=== PATIENT | female | born 1980 | race Two or more races ===

== ENCOUNTER 2020-12-18 07:49 | Outpatient (CLI) | payer OTHER, SELFPAY ==
--- NOTE | 2020-12-18 08:03 | MM_ITS ---
WS: [id number] Bilateral screening digital mammogram, 12/18/2020 Clinical Data: SCREENING Comparison: None. Findings: The breast parenchymal pattern shows fibroglandular tissue No spiculated masses or clustered calcific ations are seen. There are no secondary signs of carcinoma. MM/[id number] Impression: 1. Negative bilateral mammogram with no prior exams for review. 2. Recommend annual screening mammograms. BIRADS: 1-Negative FOLLOW UP: 1 Year Follow-up The CAD checker loader was used.
== END 2020-12-18 07:50 | disposition home or self-care (01) ==
LOC: RADSHAW 07:57
PROVIDERS: Family Provider Family Medicine; Visit Provider Nurse Practitioner Family
DX: Z12.31 Encounter for screening mammogram for malignant neoplasm of breast (principal)
CPT/HCPCS: 77067

== ENCOUNTER 2021-08-16 20:47 | Emergency (ER) | payer BC, MEDICAID, SELFPAY ==
[2021-08-16 21:39] VITALS: BP 140/84; PULSE 73; RESP 18; TEMP 36.8; O2SAT 99; BMI 29.6
[2021-08-16 22:22] LABS: Add Urine Microscopic? YES; Bilirubin Urine Neg (Negative); Blood Urine 3+ (Negative); Glucose Urine UA Norm (Normal); Ketones Urine Negative (Negative); Leukocyte Esterase Urine Negative (Negative); Nitrate Urine Negative (Negative); Protein Urine Neg (Negative); Sulfosalicylic Acid Urine Negative (Negative); Urine Appearance Clear (CLEAR); Urine Color Yellow (Yellow); Urobilinogen Urine Norm (Negative); pH Urine 8 (5-7)
[2021-08-16 22:23] LABS: Add Urine Culture? No; Bacteria Urine TRACE /hpf; Squamous Epithelial Cell Urine 0-4 /hpf (0-5); WBC Urine 0-4 /hpf (0-5)
[2021-08-16 22:37] LABS: Basophils % 0.3 %; Eosinophils # 0.1 10^3/uL (0.0-0.8); Eosinophils % 0.6 %; Hematocrit 42.2 % (37.0-47.0); Hemoglobin 14.6 g/dL (11.5-15.3); Lymphocytes % 16.4 %; Mean Corpuscular HGB Conc 34.6 g/dL (30.0-36.0); Mean Corpuscular Hemoglobin 31.4 pg (28.0-34.0); Mean Corpuscular Volume 90.8 fl (81-99); Mean Platelet Volume 11.5 fL (7.4-10.4); Monocytes # 0.8 10^3/uL (0.2-0.9); Monocytes % 6.7 %; Neutrophils # 9.35 10^3/uL (1.8-7.7); Neutrophils % 75.6 %; Nucleated Red Blood Cells % 0 %; Platelet Count 231 10^3/cmm (130-400); Red Blood Count 4.65 10^6/uL (4.1-5.3); Red Cell Distribution Width 11.9 % (12.1-15.1); White Blood Count 12.4 10^3/uL (4.0-10.0)
--- NOTE | 2021-08-17 01:16 | USR_ITS ---
PROCEDURE INFORMATION: Exam: US First Trimester, Transabdominal Exam date and time: 08/17/2021 1:16 AM Age: 40 years old Clinical indication: Lmp or gestational age (in weeks): 7w0d per lmp; Antepartum complications; Bleeding; ; Prior surgery; Surgery date: 6+ months; Surgery type: C-sec; Additional info: Threatened miscarriage TECHNIQUE: Imaging protocol: Real-time transabdominal obstetrical ultrasound of the maternal pelvis and a first trimester , less than 14 weeks 0 days, with image documentation. COMPARISON: No relevant prior studies available. FINDINGS: Gestation: Yolk sac measures 3 mm. Embryonic/ heart rate: heart rate 150 bpm. Extra-embryonic membranes/Placenta: Small suspected subchorionic hemorrhage. Amniotic fluid: Amniotic fluid/chorionic fluid is normal for gestational age. BIOMETRY: Gestational age (AUA): Gestational age 7 weeks and 6 days. Estimated due date (AUA): Estimated due date 03/30/2022. [place]-Rump length: Intrauterine gestation with crown-rump length measuring 1.5 cm. MATERNAL: Uterus: Unremarkable. Cervix: 3.2 cm closed cervix. Right ovary/adnexa: Right ovary could not be visualized as result of adjacent bowel. Left ovary/adnexa: Left ovary contains a small probable cyst or corpus luteum, and has normal vascular flow. Intraperitoneal space: No free fluid. US/US OB <= 14 weeks fetus [id number] IMPRESSION: 1. Small suspected subchorionic hemorrhage. 2. Living intrauterine gestation measuring 7 weeks and 6 days with due date 03/30/2022.
--- NOTE | 2021-08-17 01:32 | W.ED.GENADLT ---
HPI - General Adult General: Chief complaint: Vaginal Bleeding Stated complaint: 7 weeks pregnat an bleeding Time Seen by Provider: 08/17/21 00:05 Source: patient Mode of arrival: ambulatory Limitations: no limitations History of Present Illness: HPI narrative: 40-year-old female states she currently is 6 weeks states she went to the bathroom earlier and noticed blood in her underwear she had some slight bleeding since then as well. She denies any abdominal pain denies any fevers denies any worsening improving factors. She denies any vaginal discharge. Associated symptoms: Deny chest pain, dyspnea, headache(s), nausea, rash or vomiting Review of Systems Const: Denies: fever(s), chills, body aches or change in appetite Eyes: Denies: blurry vision or eye discomfort ENMT: Denies: throat pain or dental pain Card: Denies: chest pain Resp: Denies: dyspnea GI: Denies: abdominal pain, nausea, vomiting or diarrhea : Reports: vaginal bleeding Musc: Denies: neck pain or back pain Skin/Breast: Denies: rash Neuro: Denies: headache(s) Psych: Denies: depression Yvan/Lymph: Denies: easy bruising All/Imm: Denies: urticaria [facility] ED Female Reproductive History: Date of last menstrual period: 06/25/21 Physical Exam Const: COMMON NORMALS: no acute distress, patient oriented x3 and healthy appearing HENMT: COMMON NORMALS: normocephalic and atraumatic HEAD & SCALP: normocephalic and atraumatic Eye: COMMON NORMALS: Equal, round and reactive pupils present and EOMs intact bilaterally PUPIL: Yes Equal, round and reactive pupils present Neck/C-Spine: COMMON NORMALS: full ROM and supple Chest: COMMONS NORMALS: normal inspection of the chest and normal palpation of entire chest wall Resp: COMMON NORMALS: normal respiratory effort, No retractions, No use of accessory muscles and clear to auscultation bilaterally AUSCULTATION: clear to auscultation bilaterally Cardio: COMMON NORMALS: regular rate, regular rhythm and No murmurs present (Cardio) RATE: regular rate RHYTHM: regular rhythm GI: COMMON NORMALS: Normal to inspection, nondistended, normoactive bowel sounds present, Soft to palpation, non-tender and no masses PALPATION: Yes Soft to palpation Extremity: COMMON NORMALS: normal to inspection and full ROM Neuro: COMMON NORMALS: patient oriented x3, moves all extremities and no focal motor deficits Psych: COMMON NORMALS: mental status grossly normal, Normal thought process present and cooperative THOUGHT PROCESS: Normal thought process present Skin: COMMON NORMALS: no rashes or lesions noted and no wounds GENERAL SKIN EXAM: no rashes or lesions noted Course Vital Signs: Vital signs: Vital Signs Temperature 98.3 F 08/16/21 21:39 Pulse Rate 73 08/16/21 21:39 Respiratory Rate 18 08/16/21 21:39 Blood Pressure 140/84 08/16/21 21:39 Pulse Oximetry 99 08/16/21 21:39 MDM - General Adult MDM Narrative: Medical decision making narrative: Patient presents here with a threatened miscarriage ultrasound here showed an IUP with heart rate she is well-appearing here with no abdominal pain. She is to follow-up with her OB as scheduled this week and return if worsening she understands agrees to plan. Lab Data: Labs: Lab Results 08/16/21 08/16/21 08/16/21 21:50 22:30 22:30 WBC 12.4 10^3/uL H 10 ^3/uL (4.0-10.0) RBC 4.65 10^6/uL 10^6 /uL (4.1-5.3) Hgb 14.6 g/dL g/dL (11.5-15.3) Hct 42.2 % % (37.0-47.0) MCV 90.8 fl fl (81-99) MCH 31.4 pg pg (28.0-34.0) MCHC 34.6 g/dL g/dL (30.0-36.0) RDW 11.9 % L % (12.1-15.1) Plt Count 231 10^3/cmm 10^3 /cmm (130-400) MPV 11.5 fL H fL (7.4-10.4) Neut % (Auto) 75.6 % % Lymph % (Auto) 16.4 % % [place] % (Auto) 6.7 % % Eos % (Auto) 0.6 % % Baso % (Auto) 0.3 % % Neut # (Auto) 9.35 10^3/uL H 10 ^3/uL (1.8-7.7) Lymph # (Auto) 2.0 10^3/uL 10^3/ uL (0.8-4.8) [place] # (Auto) 0.8 10^3/uL 10^3/ uL (0.2-0.9) Eos # (Auto) 0.1 10^3/uL 10^3/ uL (0.0-0.8) Baso # (Auto) 0.0 10^3/uL 10^3/ uL (0.0-0.1) Nucleated RBC % (a uto) 0 % % Nucleated RBCs # 0.0 /100WBC /100W BC Ser , [place] 17658.00 mIU/mL m IU/mL Urine Color Yellow (Yellow) Urine Appearance Clear (CLEAR) Urine pH 8 H (5-7) Ur Specific Gravit y 1.020 (1.005-1.030) Urine Protein Neg (Negative) Urine Glucose (UA) Norm (Normal) Urine Ketones Negative (Negative) Urine Blood 3+ H (Negative) Urine Nitrate Negative (Negative) Urine Bilirubin Neg (Negative) Prot Sulfosalicyli c Acd Negative (Negative) Urine Urobilinogen Norm mg/dL mg/dL (Negative) Ur Leukocyte Marga ase Negative (Negative) Urine RBC 5-10 /hpf H /hpf (0-2) Urine WBC 0-4 /hpf H /hpf (0-5) Ur Squamous Epith Cells 0-4 /hpf H /hpf (0-5) Amorphous Sediment Not Reportable Urine Bacteria Trace /hpf /hpf (NONE) Blood Type Rho(D) Type Antibody Screen 08/17/21 01:24 WBC RBC Hgb Hct MCV MCH MCHC RDW Plt Count MPV Neut % (Auto) Lymph % (Auto) [place] % (Auto) Eos % (Auto) Baso % (Auto) Neut # (Auto) Lymph # (Auto) [place] # (Auto) Eos # (Auto) Baso # (Auto) Nucleated RBC % (a uto) Nucleated RBCs # Ser , [place] i-Qnt Urine Color Urine Appearance Urine pH Ur Specific Gravit y Urine Protein Urine Glucose (UA) Urine Ketones Urine Blood Urine Nitrate Urine Bilirubin Prot Sulfosalicyli c Acd Urine Urobilinogen Ur Leukocyte Marga ase Urine RBC Urine WBC Ur Squamous Epith Cells Amorphous Sediment Urine Bacteria Blood Type O Positive Rho(D) Type Positive Antibody Screen Negative Discharge Plan Discharge Patient Disposition: Home Clinical Impression: Threatened Condition: Stable Discharge Orders: Discharge ED (Routine); Ordered 08/17/21 Ordered By: Lashaun Garcia Discharge Diet: Advance as tolerated Discharge Activity: Resume usual activity Patient Instructions: Threatened Miscarriage (ED) Coding Level of Care Code ED Machinery Mover for Nayan Fwd Exam Comprehensive
[2021-08-17 02:28] VITALS: BP 127/97; PULSE 80; RESP 17; O2SAT 98
== END 2021-08-17 02:32 | disposition home or self-care (01) ==
PROVIDERS: Emergency Provider Emergency Medicine
DX: O20.0 Threatened abortion (principal); Z3A.01 Less than 8 weeks gestation of pregnancy
CPT/HCPCS: 36415; 76801; 81001; 84702; 85025; 86850; 86900; 99283

== ENCOUNTER → 2021-08-20 11:20 | Outpatient (BNVA) | payer BC, MEDICAID, SELFPAY | PROVIDERS: Visit Provider Nurse Practitioner Women's Health | DX: O09.521 Supervision of elderly multigravida, first trimester; O41.8X10 Other specified disorders of amniotic fluid and membranes, first trimester, not applicable or unspecified; O46.8X1 Other antepartum hemorrhage, first trimester; N92.6 Irregular menstruation, unspecified; Z3A.00 Weeks of gestation of pregnancy not specified | CPT/HCPCS: 81000; 81025 ==

== ENCOUNTER 2021-08-31 19:50 | Emergency (ER) | payer BC, MEDICAID, SELFPAY ==
[2021-08-31 21:02] VITALS: BP 141/96; PULSE 65; RESP 20; TEMP 36.9; O2SAT 100; BMI 29.1
[2021-08-31 23:40] LABS: Basophils % 0.4 %; Eosinophils % 0.3 %; Hematocrit 42.7 % (37.0-47.0); Hemoglobin 14.9 g/dL (11.5-15.3); Lymphocytes # 2.5 10^3/uL (0.8-4.8); Lymphocytes % 23.7 %; Mean Corpuscular HGB Conc 34.9 g/dL (30.0-36.0); Mean Corpuscular Hemoglobin 31.6 pg (28.0-34.0); Mean Corpuscular Volume 90.7 fl (81-99); Mean Platelet Volume 11.7 fL (7.4-10.4); Monocytes # 0.5 10^3/uL (0.2-0.9); Monocytes % 4.6 %; Neutrophils % 70.8 %; Nucleated Red Blood Cells % 0 %; Platelet Count 233 10^3/cmm (130-400); Red Blood Count 4.71 10^6/uL (4.1-5.3); Red Cell Distribution Width 11.9 % (12.1-15.1); White Blood Count 10.7 10^3/uL (4.0-10.0)
--- NOTE | 2021-09-01 01:16 | ED_ITS ---
HPI - Female Genitourinary General: Chief complaint: Vaginal Bleeding Stated complaint: 9 weeks pregnat an bleeding Time Seen by Provider: 09/01/21 01:10 Source: patient Mode of arrival: ambulatory Limitations: no limitations History of Present Illness: 40-year-old female is roughly 9 weeks sta jatin she went to the bathroom earlier and had a small clot and had some slight spotting just when she wipes states bleeding is pretty much stopped. Said some slight lower abdominal cramping she denies any worsening improving factors she has had previous ultrasound that showed an IUP. She had no vomiting or diarrhea Associated symptoms: Deny abdominal pain, headache(s) or nausea Date of Last Menstrual Period: 06/24/21 Review of Systems Const: Denies: fever(s), chills, body aches or change in appetite Eyes: Denies: blurry vision or eye discomfort ENMT: Denies: throat pain or dental pain Card: Denies: chest pain Resp: Denies: dyspnea GI: Denies: abdominal pain, nausea, vomiting or diarrhea : Reports: vaginal bleeding Musc: Denies: neck pain or back pain Skin/Breast: Denies: rash Neuro: Denies: headache(s) Psych: Denies: depression Yvan/Lymph: Denies: easy bruising All/Imm: Denies: urticaria PFSH ED PFSH: Medical History No pertinent past medical history neghx:htn,dm,thyroid,dvt/pe PCP: none Surgical History (Updated 08/20/21 @ 12:40 by Emilee Carpio APN, NIDA) History of section 2004--- Primary for breech presentation. Family History Mother Cancer, Onset Age: 50 Grandmother Cancer PGM Father Hypertension Hyperlipidemia Denies family history of Diabetes CAD (coronary artery disease) Clotting disorder Chronic kidney disease (CKD) Bleeding disorder Lung disease Stroke Female Reproductive History: Date of last menstrual period: 06/24/21 Physical Exam Const: COMMON NORMALS: no acute distress, patient oriented x3 and healthy appearing HENMT: COMMON NORMALS: normocephalic and atraumatic HEAD & SCALP: normocephalic and atraumatic Eye: COMMON NORMALS: Equal, round and reactive pupils present and EOMs intact bilaterally PUPIL: Yes Equal, round and reactive pupils present Neck/C-Spine: COMMON NORMALS: full ROM and supple Chest: COMMONS NORMALS: normal inspection of the chest and normal palpation of entire chest wall Resp: COMMON NORMALS: normal respiratory effort, No retractions, No use of accessory muscles and clear to auscultation bilaterally AUSCULTATION: clear to auscultation bilaterally Cardio: COMMON NORMALS: regular rate, regular rhythm and No murmurs present (Cardio) RATE: regular rate RHYTHM: regular rhythm GI: COMMON NORMALS: Normal to inspection, nondistended, normoactive bowel sounds present, Soft to palpation, non-tender and no masses PALPATION: Yes Soft to palpation Extremity: COMMON NORMALS: normal to inspection and full ROM Neuro: COMMON NORMALS: patient oriented x3, moves all extremities and no focal motor deficits Psych: COMMON NORMALS: mental status grossly normal, Normal thought process present and cooperative THOUGHT PROCESS: Normal thought process present Skin: COMMON NORMALS: no rashes or lesions noted and no wounds GENERAL SKIN EXAM: no rashes or lesions noted Course Vital Signs: Vital signs: Vital Signs Temperature 98.4 F 08/31/21 21:02 Pulse Rate 65 08/31/21 21:02 Respiratory Rate 20 H 08/31/21 21:02 Blood Pressure 141/96 08/31/21 21:02 Pulse Oximetry 100 08/31/21 21:02 MDM - Female Medical Decision Making Patient presents here with a threatened miscarriage she has no pain bleeding is essentially stopped I did a bedside ultrasound showed IUP consistent with dates heart rate of 152 she is stable for discharge is to follow-up with her OB. Lab Data : 08/31/21 23:26 Laboratory Results WBC 10.7 10^3/uL (4.0-10.0) H 08/31/21 23:26 RBC 4.71 10^6/uL (4.1-5.3) 08/31/21 23:26 Hgb 14.9 g/dL (11.5-15.3) 08/31/21 23:26 Hct 42.7 % (37.0-47.0) 08/31/21 23:26 MCV 90.7 fl (81-99) 08/31/21 23:26 MCH 31.6 pg (28.0-34.0) 08/31/21 23: MCHC 34.9 g/dL (30.0-36.0) 08/31/21 23: RDW 11.9 % (12.1-15.1) L 08/31/21 23: Plt Count 233 10^3/cmm (130-400) 08/31/21 23: MPV 11.7 fL (7.4-10.4) H 08/31/21 23: Neut % (Auto) 70.8 % 08/31/21 23: Lymph % (Auto) 23.7 % 08/31/21 23: [place] % (Auto) 4.6 % 08/31/21 23: Eos % (Auto) 0.3 % 08/31/21 23: Baso % (Auto) 0.4 % 08/31/21 23: Neut # (Auto) 7.60 10^3/uL (1.8-7.7) 08/31/21 23: Lymph # (Auto) 2.5 10^3/uL (0.8-4.8) 08/31/21 23: [place] # (Auto) 0.5 10^3/uL (0.2-0.9) 08/31/21 23: Eos # (Auto) 0.0 10^3/uL (0.0-0.8) 08/31/21 23: Baso # (Auto) 0.0 10^3/uL (0.0-0.1) 08/31/21 23: Nucleated RBC % (auto) 0 % 08/31/21 23: Nucleated RBCs # 0.0 /100WBC 08/31/21 23:26 Ser , [place]-Qnt 22666.00 mIU/mL 08/31/21 23:26 Discharge Plan Discharge Patient Disposition: Home Clinical Impression: Threatened miscarriage Condition: Stable Prescriptions: No Action folic acid 400 mcg tablet 0.4 mg PO DAILY 0RF prenat.vits,edinson,[id number] Tablet 1 tab PO DAILY 0RF calcium carbonate 500 mg calcium (1,250 mg) tablet 500 mg PO DAILY 0RF Discharge Orders: Discharge ED (Routine); Ordered 09/01/21 Ordered By: Lashaun Garcia Discharge Diet: Advance as tolerated Discharge Activity: Resume usual activity Patient Instructions: Threatened Miscarriage (ED) Coding Level of Care Code ED Supervisor Beam Department for Nayan Saldana
== END 2021-09-01 01:20 | disposition home or self-care (01) ==
PROVIDERS: Emergency Provider Emergency Medicine
DX: O20.0 Threatened abortion (principal); Z3A.09 9 weeks gestation of pregnancy
CPT/HCPCS: 36415; 84702; 85025; 99283

== ENCOUNTER 2022-02-10 08:24 | Outpatient (CLI) | payer BC, MEDICAID, SELFPAY ==
--- NOTE | 2022-02-10 08:33 | MM_ITS ---
WS: [id number] BILATERAL SCREENING DIGITAL BREAST TOMOSYNTHESIS MAMMOGRAM WITH CAD HISTORY: SCREENING COMPARISON: 12/18/2020 Bilateral CC and MLO views with tomosynthesis and synthetic mammography submitted. Computer aided det ection analyzed. Breast composition: There are scattered areas of fibroglandular density. No suspicious masses, microc alcifications or architectural distortion. MM/[id number] IMPRESSION: BI-RADS: 1-Negative FOLLOW UP: 1 Year Follow-up
== END 2022-02-10 08:25 | disposition home or self-care (01) ==
LOC: RAD 08:24
PROVIDERS: Visit Provider Family Medicine
DX: Z12.31 Encounter for screening mammogram for malignant neoplasm of breast (principal)
CPT/HCPCS: 77063; 77067

== ENCOUNTER 2023-02-25 08:07 | Outpatient (CLI) | payer BC, MEDICAID, SELFPAY ==
--- NOTE | 2023-02-25 08:21 | MM_ITS ---
WS: [id number] BILATERAL SCREENING DIGITAL TOMOSYNTHESIS MAMMOGRAM WITH CAD HISTORY: SCREENING COMPARISON: 02/10/2022, 12/18/2020 Bilateral CC and MLO views with tomosynthesis and synthetic mammography submitted. Computer aided det ection analyzed. Breast composition: There are scattered areas of fibroglandular density. No suspicious masses, microc alcifications or architectural distortion. MM/[id number] IMPRESSION: BI-RADS: 1-Negative FOLLOW UP: 1 Year Follow-up
== END 2023-02-25 08:08 | disposition home or self-care (01) ==
LOC: RAD 08:13 → MOBLMAM 08:20
PROVIDERS: Visit Provider Family Medicine
DX: Z12.31 Encounter for screening mammogram for malignant neoplasm of breast (principal)
CPT/HCPCS: 77063; 77067

== ENCOUNTER 2024-02-08 09:03 | Outpatient (CLI) | payer OTHER, SELFPAY ==
--- NOTE | 2024-02-08 09:12 | MM_ITS ---
WS: [id number] BILATERAL 3D TOMOSYNTHESIS DIGITAL SCREENING MAMMOGRAPHY WITH CAD CLINICAL INFORMATION: SCREENING HISTORY: Screening mammogram. No current complaints. COMPARISON: 2022 TECHNIQUE: Bilateral CC and MLO views. FINDINGS: Scattered fibroglandular densities bilaterally. No suspicious focal mass, asymmetry, calcifications, or architectural distortion. No evidence of malignancy. MM/[id number] IMPRESSION: BI-RADS: 1-Negative FOLLOW UP: 1 Year Follow-up Recommend return to annual screening mammography.
== END 2024-02-08 09:04 | disposition home or self-care (01) ==
LOC: RAD 09:07
PROVIDERS: Visit Provider Advanced Practice Midwife
DX: Z12.31 Encounter for screening mammogram for malignant neoplasm of breast (principal)
CPT/HCPCS: 77063; 77067

== ENCOUNTER 2025-02-08 09:21 | Outpatient (CLI) | payer OTHER, SELFPAY ==
--- NOTE | 2025-02-08 09:34 | MM_ITS ---
WS: [id number] BILATERAL 3D TOMOSYNTHESIS DIGITAL SCREENING MAMMOGRAPHY WITH CAD CLINICAL INFORMATION: SCREENING HISTORY: Screening mammogram. No current complaints. COMPARISON: 2023 TECHNIQUE: Bilateral CC and MLO views. FINDINGS: Scattered fibroglandular densities bilaterally. No suspicious focal mass, asymmetry, calcifications, or architectural distortion. No evidence of malignancy. MM/MM scr BI tomosynthesis [id number] IMPRESSION: DENSITY: There are scattered areas of fibroglandular density. BI-RADS: 1 - Negative. FOLLOW UP: 1 Year Follow-up Recommend return to annual screening mammography.
== END 2025-02-08 09:22 | disposition home or self-care (01) ==
LOC: RAD 09:26
PROVIDERS: PCP Advanced Practice Midwife; Visit Provider Advanced Practice Midwife
DX: Z12.31 Encounter for screening mammogram for malignant neoplasm of breast (principal)
CPT/HCPCS: 77063; 77067